=== PATIENT | female | born 1935 | race Caucasian/White ===

== ENCOUNTER → 2016-05-24 | Outpatient (CLI) | payer MEDICARE, BC ==
[~2016-05-24] MED LIST: ALBUTEROL17 GM INH; ASCORBIC ACID500 M2 PO; ASPIRIN81 M2 PO; CALCIUM + D 6001 TA1 PO; CALCIUM 600 + D1 TAB PO; CELEXA20 M1 PO; CELEXA20 MG PO; DIFLUCAN PO; E-400 C-500 & B1 TAB PO; KLONOPIN PO; MULTI VITAMIN1 EACH PO; NORCO 5/325 TAB1 TAB PO; VIT E PO; VITAMIN C PO; VITAMIN E400 UNI2 PO
--- NOTE | ~2016-05-24 | CT57 ---
[facility] A Service of [facility] & [facility] RADIOLOGY TEXT RESULTS PATIENT: VICKI ARVIZU LOCATION: [facility] : 34 UNIT #: [id number] AGE: [address]: Ashok Cherry MD SEX: F ORDER DR: [id number] [id number] [facility]. [place], [place] [address] [id number] O MR#: [id number] Acc #: [id number] NAME: VICKI ARVIZU : 1935 SEX: F STUDY DATE/TIME: 05/24/2016 13:27 UNIT: CCA ROOM: STUDY DESCRIPTION: CT Chest Wo Cont Attending Physician: Ashok Cherry M.D. Referring Physician: Ashok Cherry M.D. Ordering Physician: Ashok Cherry M.D. Primary Care Physician: Carlos Rivera M.D. MEDICAL IMAGING REPORT This report is preliminary unless electronic signature is present EXAM CT of the chest, without contrast. HISTORY 80-year-old male with follow-up lung mass. TECHNIQUE CT chest performed without contrast. Coronal and sagittal reformatted images were obtained. This CT exam was performed with one or more of the following radiation dose reduction techniques: automatic exposure control, adjustment of mA and/or kV according to patient size, and iterative reconstruction. COMPARISON STUDIES 04/25/2016 FINDINGS There is an area of cavitation within the anterior left lung. The consolidation/infiltrate in the region of the cavitation has significantly improved. There is persistent complete atelectasis of the left lower lobe. There is persistent minimal tree-in-bud nodularity in the posterior left upper lobe. Stable, small left pleural effusion. The previously noted chest tube has been removed. There is a trace amount of pleural fluid on the right. Overall, the volume of pleural fluid has decreased. There is no pneumothorax. Scattered nodularity in the right lung and interstitial thickening, as well as bronchial wall thickening is present. The dense consolidation in the right lower lobe and right middle lobe is significantly improved. Trace pericardial fluid. Coronary artery calcification. No suspicious lymphadenopathy. Limited imaging of the upper abdomen is unremarkable. The bone windows are unremarkable. STS. [facility] A Service of [facility] & [facility] RADIOLOGY TEXT RESULTS PATIENT: VICKI ARVIZU [facility] UN[facility] #: [id number] AGE: [address]: Ashok Cherry MD SEX: F ORDER DR: IMPRESSION 1. Interval improvement in the appearance of the chest. The consolidations in the right lower and right middle lobes have significantly improved. There is some residual interstitial thickening and tree-in-bud nodularity, as well as bronchial wall thickening within the right lower and right middle lobes. 2. The consolidations within the anterior left lung have resolved. There is a persistent area of cavitation within this region in the anterior left lung. 3. Stable small pleural effusion on the left and decreased pleural effusion on the right. Dictated by... Riky Salazar M.D. THIS IS AN ELECTRONICALLY VERIFIED REPORT Riky Salazar M.D. at 05/27/2016 8:04 AM ERVIN/wisam TD: 05/26/2016 13:24 JOB #: [id number] MEDICAL IMAGING REPORT Page 1 of 1 COPY
== END | disposition home or self-care (01) ==
LOC: CCAT 13:04
DX: R91.8 Other nonspecific abnormal finding of lung field (principal); J18.9 Pneumonia, unspecified organism; J90 Pleural effusion, not elsewhere classified
CPT/HCPCS: 71250

== ENCOUNTER → 2016-09-23 | Outpatient (CLI) | payer MEDICARE, BC ==
--- NOTE | ~2016-09-23 | CT57 ---
[facility] A Service of [facility] & [facility] RADIOLOGY TEXT RESULTS PATIENT: VICKI ARVIZU LOCATION: [facility] : 34 UNIT #: [id number] AGE: [address]: Ashok Cherry SEX: F ORDER DR: [id number] [facility]. [place], [place] [address] [id number] O MR#: [id number] Acc #: [id number] NAME: VICKI ARVIZU : 1935 SEX: F STUDY DATE/TIME: 09/23/2016 11:11 UNIT: CCA ROOM: STUDY DESCRIPTION: CT Chest Wo Cont Attending Physician: Ashok Cherry M.D. Referring Physician: Ashok Cherry M.D. Ordering Physician: Ashok Cherry M.D. Primary Care Physician: Carlos Rivera M.D. MEDICAL IMAGING REPORT This report is preliminary unless electronic signature is present EXAM CT chest INDICATION Pneumonia. Follow up. Restaging. TECHNIQUE CT of the thorax without contrast. Coronal and sagittal reconstructions were obtained. This CT examination was performed with one or more of the following radiation dose reduction techniques: automatic exposure control, adjustment of mA and/or kV according to patient size, and iterative reconstruction. COMPARISON CT thorax dated 05/24/2016. FINDINGS There is complete consolidation and volume loss in the left lower lobe. The left bronchus is occluded shortly after the bifurcation. The overall appearance is fairly similar to the prior CT scan. There is some focal consolidation in the lingula. The consolidation in the lingula has slightly increased. There is increased tree-in-bud nodularity within the left upper lobe. Overall the areas of consolidation in the right middle lobe and right lower lobe have improved. There are still parenchymal opacities in both lungs. There is significant mucous plugging within the right middle lobe and right lower lobe. The tree-in-bud nodularity from the right upper lobe is similar to the prior study. Patient does have moderate bronchiectasis. There is background emphysema. No enlarged mediastinal or hilar lymph nodes. No pericardial effusion. There is a small left pleural effusion, similar to the prior study. [facility] A Service of [facility] & [facility] RADIOLOGY TEXT RESULTS PATIENT: VICKI ARVIZU LOCATION: [facility] : 34 UNIT #: [id number] AGE: [address]: Ashok Cherry SEX: F ORDER DR: No acute osseous abnormalities. IMPRESSION 1. Dense consolidation and volume loss in the left lower lobe is unchanged from 05/24/2016. There is occlusion of the left lower lobe bronchus shortly after the bifurcation. This is felt to represent either a persistent or recurrent pneumonia. Follow up is recommended to exclude a central obstructing mass. 2. Slight increase in the airspace consolidation in the lingula with some increase in tree-in-bud nodularity in the left upper lobe. 3. Improving airspace opacities in the right middle lobe and right lower lobe. There are some persistent airspace opacities as well as extensive mucus plugging. 4. Moderate bronchiectasis. Dictated by... Jaiden Chowdhury M.D. THIS IS AN ELECTRONICALLY VERIFIED REPORT Jaiden Chowdhury M.D. at 09/24/2016 4:02 PM NEYDA/terrell TD: 09/24/2016 13:30 JOB #: [id number] MEDICAL IMAGING REPORT Page 1 of 1 COPY
== END | disposition home or self-care (01) ==
LOC: CCAT 10:19
DX: J18.9 Pneumonia, unspecified organism (principal); J98.4 Other disorders of lung; J47.9 Bronchiectasis, uncomplicated; R91.8 Other nonspecific abnormal finding of lung field
CPT/HCPCS: 71250